=== PATIENT | female | born 1985 | race Caucasian/White ===

== ENCOUNTER 2021-09-16 00:42 | Emergency (ER) | payer SELFPAY ==
[2021-09-16] MEDS ORDERED: Azithromycin 250 MG Tab PO ONE (02:36)
[2021-09-16] MEDS ORDERED: cefTRIAXone 250 MG Vial IM ONE (02:36)
[2021-09-16] MEDS ORDERED: metroNIDAZOLE 500 MG Tab PO ONE (02:36)
[2021-09-16] MEDS ORDERED: Ondansetron 4 MG Tab.DIS PO ONE (02:40)
[2021-09-16] MEDS ORDERED: Azithromycin 500 MG Tab ONE (03:04)
[2021-09-16] MEDS: Azithromycin 500 MG Tab PO ONE (03:06)
[2021-09-16] MEDS ORDERED: Azithromycin 500 MG Tab PO ONE (03:11)
[2021-09-17] MEDS: Azithromycin 500 MG Tab PO ONE (06:28)
== END 2021-09-16 03:40 | disposition home or self-care (01) ==
LOC: FB.ED 00:42
DX: T74.21XA Adult sexual abuse, confirmed, initial encounter (principal); Z88.0 Allergy status to penicillin; Z79.899 Other long term (current) drug therapy
CPT/HCPCS: 96372; 99284; A9270; J0696; Q0162

== ENCOUNTER 2021-09-23 19:41 | Emergency (ER) | payer MEDICAID | END 2021-09-23 20:20 | disposition home or self-care (01) | LOC: FB.ED 19:41 | DX: H66.93 Otitis media, unspecified, bilateral (principal); J02.9 Acute pharyngitis, unspecified; Z88.0 Allergy status to penicillin; Z79.899 Other long term (current) drug therapy | CPT/HCPCS: 99282 ==